=== PATIENT | male | born 1955 | race Caucasian/White ===

== ENCOUNTER → 2024-06-14 10:32 | Outpatient (CLI) | payer OTHER, SELFPAY ==
--- NOTE | 2024-06-14 10:36 | DI.US.S_ITS ---
PROCEDURE: US ABD AORTA ANEURYSM SCREEN INDICATIONS: SCREENING TECHNIQUE: Real time scanning was performed of the aorta and iliac arteries, with image documentation. COMPARISON: None. FINDINGS: Aorta: Proximal aortic diameter measures 3.1 x 2.6 cm. Mid-aorta measures 2.6 cm. Distal aortic diameter is 1.8 cm. Iliac arteries: Right common iliac artery measures 0.9 cm. Left common iliac artery measures 0.9 cm. Solid-appearing mass is incidentally seen in the left hepatic lobe measuring 4.4 x 3.3 x 3.6 cm. Hyperechoic lesion is also seen in the left hepatic lobe measuring 1.4 x 1.5 x 1.6 cm. Simple cysts are seen in the right liver. Multiple gallstones are present. IMPRESSION: 1. 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 Recommend 3 year follow-up ultrasound. 2. Masslike lesion in the left hepatic lobe measuring up to 4.4 cm. Recommend further evaluation with liver protocol MRI or CT. 3. Cholelithiasis. Approved by: Brent Vazquez M.D. on 06/14/2024 at 11:44
== END ==
LOC: US 10:34
PROVIDERS: PCP Student in an Organized Health Care Education/Training Program; Referring Provider Family Medicine; Visit Provider Family Medicine
DX: Z13.6 Encounter for screening for cardiovascular disorders (principal); I71.40 Abdominal aortic aneurysm, without rupture, unspecified; K76.89 Other specified diseases of liver; K80.20 Calculus of gallbladder without cholecystitis without obstruction
CPT/HCPCS: 76706

== ENCOUNTER 2024-08-03 11:19 | Day surgery (SDC) | payer OTHER, SELFPAY ==
[2024-08-03 12:10] VITALS: BP 170/98; PULSE 65; RESP 18; TEMP 36.6; O2SAT 97
--- NOTE | 2024-08-03 12:20 | P.HP_ITS ---
History of Present Illness History of Present Illness Date Patient Seen: 08/03/24 Chief complaint: Colonoscopy Narrative: Personal history of colon polyps [facility] Social History Smoking Status: Former smoker alcohol intake: current Meds Home Medications and Allergies Home Medications Medication Instructions Recorded Confirmed Type trazodone 50 mg tablet 100 mg PO ONCE PM PRN Sleep 08/03/24 08/03/24 History Allergies Allergy/AdvReac Type Severity Reaction Status Date / Time No Known Drug Allergies Allergy Verified 08/03/24 12:04 Exam Vital Signs (past 8 hours): - 08/03/24 12:10 Temperature 97.9 F Pulse Rate 65 Respiratory Rate 18 Blood Pressure 170/98 H Pulse Oximetry 97 Oxygen Delivery Method Room Air Oxygen Flow Rate 0 Oxygen Delivery Method Room Air Oxygen Flow Rate 0 Narrative Exam Narrative: Oropharynx free of lesions Chest clear to auscultation percussion Cardiac exam reveals no S3 or murmur Assessment & Plan Assessment & Plan narrative: Per personal history of colon polyps need for follow-up colonoscopy. Risks, benefits alternatives have been explained. Time-Based Coding :: [TOTAL MINUTES] spent with patient and on the chart (including review of chart, obtaining history, exam, reviewing outside data, placing orders, documenting exam and treatment plan, and counseling patient) on [DATE].
--- NOTE | 2024-08-03 12:21 | PM.OP.COLON ---
Operative Date/Time/Diagnoses Date of procedure: 08/03/24 Pre-op diagnosis: See indication and findings Procedure & Clinicians Study performed: Colonoscopy Indications: Personal history of colon polyps Surgeon: Vick Davison Procedure Notes Procedure in detail: After informed consent was obtained the patient was placed in left lateral decubitus position. Video colonoscope was introduced the rectum slowly advanced cecum. Preparation was good. On slow withdrawal mucosa was carefully examined. The scope was removed. The patient tolerated the procedure well. Blood loss none Complications none Sedation mac Findings 1. Normal colonoscopy to cecum 2. Preparation only fair to good Mr. Celestin should have follow-up colonoscopy in 5 years or last due to less than perfect prep
[2024-08-03 13:22] VITALS: BP 173/108; PULSE 78; RESP 14; TEMP 36.4; O2SAT 93
[2024-08-03 13:27] VITALS: BP 134/98; PULSE 73; RESP 17; O2SAT 97
[2024-08-03 13:35] VITALS: BP 126/78; PULSE 70; RESP 15; O2SAT 96
[2024-08-03 13:36] VITALS: BP 158/98; PULSE 70; RESP 13; TEMP 36.7; O2SAT 97
[2024-08-03 13:42] VITALS: BP 167/107; PULSE 68; RESP 9
== END 2024-08-03 13:50 | disposition home or self-care (01) ==
PROVIDERS: Referring Provider Internal Medicine Gastroenterology; Visit Provider Internal Medicine Gastroenterology
PROC: 0DJD8ZZ Inspection of Lower Intestinal Tract, Via Natural or Artificial Opening Endoscopic (ICD-10-PCS; CPT 45378; principal; 2024-08-03 13:00)
DX: Z12.11 Encounter for screening for malignant neoplasm of colon (principal); Z86.0100 Personal history of colon polyps, unspecified
CPT/HCPCS: 45378; J2704

== ENCOUNTER → 2024-08-24 11:10 | Outpatient (CLI) | payer OTHER, SELFPAY ==
[2024-08-24 12:21] LABS: Add Manual Diff / Slide Review NO; Basophils Absolute Auto 100 /uL (0-100); Basophils Percent Auto 1.1 % (0-2); Eosinophils Absolute Auto 300 /uL (0-450); Eosinophils Percent Auto 4.1 % (2-4); Hematocrit 44.6 % (41-53); Hemoglobin 15.4 g/dL (13.5-17.5); Lymphocytes Absolute Auto 1600 /uL (1100-4500); Lymphocytes Percent Auto 22.9 % (25-40); Mean Corpuscular HGB Conc 34.5 % (30-36); Mean Corpuscular Hemoglobin 30.7 PG (26-34); Mean Corpuscular Volume 89.1 fL (80-100); Monocytes Absolute Auto 800 /uL (0-900); Monocytes Percent Auto 11.2 % (3-14); Neutrophils Absolute Auto 4200 /uL (1500-7000); Neutrophils Percent Auto 60.7 % (50-75); Platelet Count 302 X10^3/uL (150-400); Red Cell Distribution Width 13.8 % (11.6-14.8)
[2024-08-24 12:50] LABS: BUN Creatinine Ratio 10.8 (6-22); Blood Urea Nitrogen 12 mg/dL (9-20); Calcium 9.5 mg/dL (8.4-10.2); Carbon Dioxide 25 mmol/L (22-32); Chloride 102 mmol/L (98-107); Cholesterol 193 mg/dL (140-199); Estimated Glomerular Filt Rate > 60 mL/min (>60); Glucose 94 mg/dL (80-110); HDL Cholesterol 51 mg/dL (40-60); HEMOLYSIS < 15 (0-50); LDL Cholesterol Calculated 107 mg/dL (<100); Potassium 4.6 mmol/L (3.4-5.1); Sodium 136 mmol/L (137-145); Triglycerides 173 mg/dL (35-150)
[2024-08-24 13:47] LABS: Hemoglobin A1C% w Est Avg Glu 5.3 % (4.0-6.0)
== END ==
PROVIDERS: PCP Nurse Practitioner Family; Referring Provider Nurse Practitioner Family; Visit Provider Nurse Practitioner Family
DX: G47.00 Insomnia, unspecified (principal); Z13.220 Encounter for screening for lipoid disorders
CPT/HCPCS: 36415; 80048; 80061; 83036; 85025